=== PATIENT | female | born 1960 | race Caucasian/White ===

== ENCOUNTER 2017-08-01 01:32 | Emergency (ER) | payer OTHER ==
[2017-08-01 02:23] LABS: URINE BLOOD (Dip) POC 3+ (NEGATIVE); URINE GLUCOSE (Dip) POC Negative (NEGATIVE); URINE KETONES (Dip) POC Negative (NEGATIVE); URINE LEUKOCYTE EST (Dip) POC 2+ (NEGATIVE); URINE NITRITE (Dip) POC Positive (NEGATIVE); URINE TOTAL PROTEIN POC 3+ (NEGATIVE)
[2017-08-01] MEDS: LIDOCAINE 1% (MDV) 10 ML INJ INFIL (02:32)
[2017-08-01] MEDS: KETOROLAC 30 MG INJ IM (02:32)
[2017-08-01] MEDS: CEFTRIAXONE 1 GM INJ IM (02:32)
== END 2017-08-01 02:57 | disposition home or self-care (01) ==
LOC: FTE 01:32
DX: N39.0 Urinary tract infection, site not specified (principal); Z85.3 Personal history of malignant neoplasm of breast
CPT/HCPCS: 81003; 87086; 96372; 99284-25